=== PATIENT | male | born 1950 | race Caucasian/White ===

== ENCOUNTER → 2024-12-05 | Outpatient (CLI) | payer MEDICARE ==
[2024-12-05 12:49] LABS: Basophils # (A) 0.03 X 10*3/uL (0.00-0.10); Basophils % (A) 0.6 %; Eosinophils # (A) 0.09 X 10*3/uL (0.04-0.35); Eosinophils % (A) 1.8 %; HCT 45.6 % (39.6-50.0); HGB 14.4 g/dL (13.0-17.0); Lymphocytes # (A) 1.24 X 10*3/uL (0.90-5.00); Lymphocytes % (A) 24.4 %; MCH 29.6 pg (27.0-32.0); MCHC 31.6 g/dL (32.0-37.0); MCV 93.8 FL (80.0-97.0); Monocytes % (A) 9.8 %; NRBC Per 100 WBC 0 X 10*3/uL (0.00-0.01); Neutrophils # (A) 3.21 X 10*3/uL (1.80-7.70); Platelet Count 273 X 10*3/uL (140-440); RBC 4.86 X 10*6/uL (4.40-5.60); RDW 12.9 % (11.5-14.5); WBC 5.09 X 10*3/uL (4.50-10.00)
[2024-12-05 13:15] LABS: T4, Free (Free Thyroxine) 1.16 ng/dL (0.80-1.80)
== END | disposition home or self-care (01) ==
LOC: LABWHC1 09:23
DX: R53.81 Other malaise (principal); R53.83 Other fatigue; R79.89 Other specified abnormal findings of blood chemistry
CPT/HCPCS: 36415; 82533; 82607; 82746; 84270; 84402; 84403; 84439; 84443; 84481; 85025; 86376

== ENCOUNTER → 2024-12-25 | Outpatient (CLI) | payer MEDICARE ==
[2024-12-25 16:21] LABS: Follicle Stimulating Hormone 3.5 mIU/mL; Luteinizing Hormone 8.4 mIU/mL; Prolactin 10.9 ng/mL (2.100-17.000)
== END | disposition home or self-care (01) ==
LOC: LABWHC1 09:01
PROVIDERS: ATTEND Hospitalist
DX: R79.89 Other specified abnormal findings of blood chemistry (principal); R97.8 Other abnormal tumor markers
CPT/HCPCS: 36415; 82627; 82670; 83001; 83002; 84146; 84403

== ENCOUNTER → 2025-01-08 | Outpatient (CLI) | payer MEDICARE | END | disposition home or self-care (01) | LOC: LABWHC1 15:01 | PROVIDERS: ATTEND Hospitalist | DX: R42 Dizziness and giddiness (principal); R79.89 Other specified abnormal findings of blood chemistry | CPT/HCPCS: 36415; 84403; 84425 ==